=== PATIENT | female | born 1990 | race Caucasian/White ===

== ENCOUNTER → 2019-11-02 | Outpatient (CLI) | payer OTHER ==
[2019-11-02 15:30] LABS: African American GFR (CKD) 136.7 (60.0-200.0); Albumin 4.3 g/dL (3.80-4.90); Albumin/Globulin Ratio 2.15 (1.60-3.17); Anion Gap 8.7 mmol/L (4.00-12.00); BUN/Creat Ratio 12.86 Ratio (12.00-20.00); Carbon Dioxide 27.3 mmol/L (21.6-31.8); Non-African American GFR(CKD) 117.9 (60.0-200.0); Total Protein 6.3 g/dL (6.2-8.2)
== END ==
LOC: LABWHC1 08:47
PROVIDERS: ATTEND Internal Medicine
DX: E03.9 Hypothyroidism, unspecified (principal); E23.0 Hypopituitarism
CPT/HCPCS: 36415; 80053; 82024; 82533; 84439

== ENCOUNTER → 2020-12-11 | Outpatient (CLI) | payer OTHER ==
[2020-12-11 21:37] LABS: African American GFR (CKD) 135.7 (60.0-200.0); Anion Gap 8.1 mmol/L (4.00-12.00); BUN/Creat Ratio 15.71 Ratio (12.00-20.00); Calcium 9.3 mg/dL (8.7-10.3); Carbon Dioxide 25.9 mmol/L (21.6-31.8); Non-African American GFR(CKD) 117.1 (60.0-200.0); Potassium 4.2 mmol/L (3.5-5.5)
[2020-12-11 21:44] LABS: T4, Free (Free Thyroxine) 1.2 ng/dL (0.80-1.80)
== END | disposition home or self-care (01) ==
LOC: LABWHC1 08:15
PROVIDERS: ATTEND Internal Medicine
DX: E23.0 Hypopituitarism (principal); E03.9 Hypothyroidism, unspecified
CPT/HCPCS: 36415; 80048; 82024; 82533; 84439

== ENCOUNTER → 2021-03-12 | Outpatient (CLI) | payer OTHER ==
--- NOTE | 2021-03-12 12:34 | MR ---
EXAMINATION TYPE: MR pituitary wo/w con DATE OF EXAM: 03/12/2021 11:44 AM COMPARISON: NONE HISTORY: Diabetes, insipidus, Loss of smell x 2 years CONTRAST: Patient received 9.5 mL intravenous Gadavist gadolinium contrast. Multiplanar MultiSpin echo imaging of the pituitary fossa was performed. Unenhanced followed by cont rast enhanced images are submitted. The unenhanced portion of the study fails to demonstrate evidence for hyperintense pituitary lesion. The pituitary gland is of normal size and morphology. Following contrast administration there is no evidence for filling defect to suggest microadenoma. Pituitary stalk is midline. Suprasellar cister n is unremarkable without evidence for mass. Optic chiasm has a normal appearance. Cavernous sinus including the carotid vessels appear to be within normal limits. IMPRESSION: 1. No evidence for pituitary micro or macroadenoma.
== END | disposition home or self-care (01) ==
LOC: RADMRIMAIN 10:27
PROVIDERS: ATTEND Otolaryngology Otolaryngic Allergy
DX: E23.2 Diabetes insipidus (principal)
CPT/HCPCS: 70553; A9585

== ENCOUNTER → 2021-03-13 | Outpatient (CLI) | payer OTHER ==
--- NOTE | 2021-03-13 13:47 | MR ---
EXAMINATION TYPE: MR brain wo/w con DATE OF EXAM: 03/13/2021 COMPARISON: MRI pituitary gland yesterday. HISTORY: diabetes insipidus, Loss of smell x 2 years TECHNIQUE: Multiplanar, multisequence images of the brain and brainstem is performed without and with IV contras t, utilizing 9.5 mL intravenous Gadavist . FINDINGS: Diffusion weighted images demonstrate no evidence of a recent infarct or other diffusion ab normality. There is no extra-axial fluid collection or significant white matter signal abnormality. The ventricular system and cisternal spaces are normal in size and appearance. The brain volume is age appropriate. Midline structures demonstrate normal morphology. The craniocervical junction appears within normal limits. Post contrast images demonstrate no abnormal enhancement. The dural venous sinuses appear pa tent. Globes are intact bilaterally. Mild to moderate mucosal thickening involving ethmoid sinuses bilaterally is suspected. Suspect small caliber or nonformed bilateral maxillary and sphenoid sinuses. Poor visualization of bilateral front al sinuses. IMPRESSION: Hypoplastic or nonformed bilateral paranasal sinuses , correlate clinically otherwise unr emarkable study.
== END | disposition home or self-care (01) ==
LOC: RADMRIMAIN 11:43
PROVIDERS: ATTEND Otolaryngology Otolaryngic Allergy
DX: E23.2 Diabetes insipidus (principal)
CPT/HCPCS: 70553; A9585

== ENCOUNTER → 2021-04-16 | Outpatient (CLI) | payer OTHER ==
--- NOTE | 2021-04-16 12:58 | CT ---
EXAMINATION TYPE: CT sinus wo con DATE OF EXAM: 04/16/2021 COMPARISON: MRI brain March 13, 2021 HISTORY: Loss of sense of smell in the last [address] DLP: 515 mGycm. Automated Exposure Control for Dose Reduction was Utilized. TECHNIQUE: CT scan of the sinuses is performed without contrast, axial images are obtained, coronal r eformatted images are also reviewed. FINDINGS: There are small-caliber bilateral maxillary sinuses with some faint calcifications and cat re mucosal thickening. Pino are thickened and sclerotic. Mild to moderate mucosal thickening involvi ng the ethmoid sinuses bilaterally. There are hypoplastic bilateral frontal and sphenoid sinuses. The ostiomeatal complex is patent bilaterally on coronal image 19. Visualized portion of mastoid air cells show diffuse sclerosis mastoid air cells remnant air cells ar e opacified. Prominent soft tissue density in the deep external auditory canals bilaterally could ref lect cerumen, the etiology is not excluded. Soft tissue density surrounds right-sided middle ear ossi cles which have abnormal shape or deformity. The globes are intact bilaterally. Nasal septum remains midline. IMPRESSION: Unusual appearance of the paranasal sinuses as detailed above suggests congenital anomaly or congenital postinflammatory process. Correlate clinically. Unusual appearance to the mastoid jose on bilaterally. Deformity to right middle ear ossicles noted. Consider clinical congenital syndromes. Follow-up advised.
== END | disposition home or self-care (01) ==
LOC: RADCTMAIN 12:24
PROVIDERS: ATTEND Otolaryngology Otolaryngic Allergy
DX: J30.9 Allergic rhinitis, unspecified (principal); H74.8X1 Other specified disorders of right middle ear and mastoid
CPT/HCPCS: 70486

== ENCOUNTER → 2021-12-16 | Outpatient (CLI) | payer OTHER ==
[2021-12-16 15:14] LABS: Anion Gap 12.6 mmol/L (10.00-18.00); BUN/Creat Ratio 13.2 Ratio (12.00-20.00); Calcium 8.9 mg/dL (8.7-10.3); Carbon Dioxide 22.6 mmol/L (20.0-27.5); Non-African American GFR(CKD) 117.3 (60.0-200.0); T4, Free (Free Thyroxine) 0.92 ng/dL (0.800-1.800)
== END | disposition home or self-care (01) ==
LOC: LABWHC1 08:54
PROVIDERS: ATTEND Internal Medicine
DX: E23.0 Hypopituitarism (principal); E03.9 Hypothyroidism, unspecified
CPT/HCPCS: 36415; 80048; 82024; 82533; 84439

== ENCOUNTER → 2022-12-16 | Outpatient (CLI) | payer OTHER ==
[2022-12-16 14:33] LABS: Basophils # (A) 0.05 X 10*3/uL (0.00-0.10); Basophils % (A) 0.6 %; Eosinophils % (A) 2.3 %; HCT 44.1 % (37.2-46.3); HGB 14.5 g/dL (12.0-15.0); Immature Grans, Automated 0.2 %; Lymphocytes # (A) 2.08 X 10*3/uL (0.90-5.00); Lymphocytes % (A) 23.7 %; MCH 29.9 pg (27.0-32.0); MCHC 32.9 g/dL (32.0-37.0); MCV 90.9 fL (80.0-97.0); Mean Platelet Volume 9.8 fL (9.5-12.2); Monocytes # (A) 0.53 X 10*3/uL (0.20-1.00); NRBC Per 100 WBC 0 /100 WBCS (0.0-0.0); Neutrophils # (A) 5.89 X 10*3/uL (1.80-7.70); Neutrophils % (A) 67.2 %; Platelet Count 253 X 10*3/uL (140-440); RBC 4.85 X 10*6/uL (4.10-5.20); RDW 11.9 % (11.5-14.5); WBC 8.77 X 10*3/uL (4.50-10.00)
[2022-12-16 15:12] LABS: ALT 35 U/L (8-44); AST 26 U/L (13-35); Albumin 4.1 g/dL (3.8-4.9); Albumin/Globulin Ratio 1.69 (1.60-3.17); Alkaline Phosphatase 95 U/L (41-126); BUN/Creat Ratio 13.64 Ratio (12.00-20.00); Blood Urea Nitrogen 8.5 mg/dL (9.0-27.0); Carbon Dioxide 23.9 mmol/L (20.0-27.5); Chloride 106 mmol/L (96-109); Chol/HDL Ratio 4.88 Ratio; Globulin 2.5 g/dL (1.6-3.3); Glucose 99 mg/dL (70-110); LDL Cholesterol,Calculated 120.7 mg/dL (0.0-131.0); Potassium 4.1 mmol/L (3.5-5.5); Sodium 142 mmol/L (135-145); Total Protein 6.6 g/dL (6.2-8.2)
== END | disposition home or self-care (01) ==
LOC: LABWHC1 10:46
PROVIDERS: ATTEND Family Medicine
DX: Z01.419 Encounter for gynecological examination (general) (routine) without abnormal findings (principal); E78.5 Hyperlipidemia, unspecified; E03.9 Hypothyroidism, unspecified; E23.0 Hypopituitarism; E55.9 Vitamin D deficiency, unspecified; E53.8 Deficiency of other specified B group vitamins; R73.9 Hyperglycemia, unspecified
CPT/HCPCS: 36415; 80053; 80061; 82024; 82306; 82533; 82607; 83036; 84439; 84443; 85025

== ENCOUNTER → 2023-03-17 | Outpatient (CLI) | payer OTHER ==
[2023-03-17 16:24] LABS: T4, Free (Free Thyroxine) 1.44 ng/dL (0.800-1.800)
== END | disposition home or self-care (01) ==
LOC: LABWHC1 11:23
PROVIDERS: ATTEND Family Medicine
DX: J45.909 Unspecified asthma, uncomplicated (principal); E03.9 Hypothyroidism, unspecified; R43.0 Anosmia
CPT/HCPCS: 36415; 82164; 82785; 84439; 84443; 84480; 86038

== ENCOUNTER → 2023-06-22 | Outpatient (CLI) | payer OTHER ==
--- NOTE | 2023-06-22 18:30 | US ---
EXAMINATION TYPE: US pelvis complete transvag DATE OF EXAM: 06/22/2023 COMPARISON: NONE CLINICAL INDICATION: Female, 32 years old with history of R10.2 PELVIC AND PERINEAL PAIN; pain TECHNIQUE: Transvaginal (TV) and Transabdominal (TA) . Transabdominal sonographic images of the pel vis were acquired. Transvaginal sonographic images were medically necessary to better assess the fol lowing anatomy: Uterus and ovaries. EXAM MEASUREMENTS: Uterus: 7.3 x 3.8 x 5.1 cm Endometrial Stripe: .3 cm 1. Uterus: Anteverted and otherwise wnl 2. Endometrium: wnl 3. Right Ovary: Obscured by overlying bowel gas 4. Left Ovary: Obscured by overlying bowel gas 5. Bilateral Adnexa: wnl 6. Posterior cul-de-sac: wnl IMPRESSION: Thin endometrial stripe at 3 mm. No evident adnexal abnormality or pelvic free fluid. Unable to visua lize either ovary.
== END | disposition home or self-care (01) ==
LOC: RADUSWWP 14:49
PROVIDERS: ATTEND Obstetrics & Gynecology
DX: R10.2 Pelvic and perineal pain (principal)
CPT/HCPCS: 76830; 76856

== ENCOUNTER 2024-07-30 08:51 | Emergency (ER) | payer OTHER ==
[2024-07-30 08:58] VITALS: TEMP 98.5
--- NOTE | 2024-07-30 10:08 | CT ---
EXAMINATION TYPE: CT brain wo con DATE OF EXAM: 07/30/2024 COMPARISON: None HISTORY: Sudden sensorineural hearing loss, dizziness CT DLP: 1125.2 mGycm. Automated Exposure Control for Dose Reduction was Utilized. TECHNIQUE: CT scan of the head is performed without contrast. FINDINGS: The ventricles, basal cisterns and sulci over the convexities are within normal limits and there is n o mass effect or shift of midline structures. There is mild focal calcification in the left basal ganglia. There is no acute intra or extra-axial h emorrhage. Posterior fossa including the brainstem, fourth ventricle and cerebellopontine angles appear grossly normal. The intraorbital contents appear normal. There are marked chronic inflammatory changes in the maxillary sinuses. Frontal sinuses and mastoid a ir cells are hypoplastic. There is fluid in the right middle ear cavity and right mastoid air cells. IMPRESSION: 1. No acute bleed or mass effect. 2. Hypoplastic mastoid air cells. 3. fluid in the right mastoid air cells and middle ear cavity.
--- NOTE | 2024-07-30 10:10 | ED ---
ENT HPI - General Chief complaint: ENT Stated complaint: hearing loss Time Seen by Provider: 07/30/24 09:11 Source: patient, RN notes reviewed Mode of arrival: ambulatory Limitations: no limitations - History of Present Illness Initial comments: 33-year-old female presents emergency department with chief complaint of hearing loss. Patient has chronic hearing issues in which she had multiple surgeries she had scarring developed over both eardrums multiple tubes and surgeries patient occasionally has some cerumen issues she does wear hearing aids indy delgado initially thought that she just could not hear because her hearing aid stopped working at a concert last night. Patient states discharge throughout the night she still having difficulty hearing. She apparently hears her left ear is right ear is very minimal. Patient states she cannot hear herself talking. Patient denies any fevers or chills no dizziness no chest pain or shortness of breath no recent illnesses. - Related Data Allergies Allergy/AdvReac Type Severity Reaction Status Date / Time No Known Allergies Allergy Verified 07/30/24 08:58 Review of Systems ROS Statement: Those systems with pertinent positive or pertinent negative responses have been documented in the HPI. ROS Other: All systems not noted in ROS Statement are negative. Past Medical History Past Medical History: Diabetes Mellitus Additional Past Medical History / Comment(s): Hearing impaired History of Any Multi-Drug Resistant Organisms: None Reported Past Surgical History: No Surgical Hx Reported Past Psychological History: No Psychological Hx Reported Smoking Status: Never smoker Past Alcohol Use History: None Reported Past Drug Use History: None Reported General Exam Limitations: no limitations General appearance: alert, in no apparent distress Head exam: Present: atraumatic, normocephalic, normal inspection Eye exam: Present: normal appearance, PERRL, EOMI. Absent: scleral icterus, conjunctival injection, periorbital swelling ENT exam: Present: normal oropharynx, mucous membranes moist. Absent: TM's normal bilaterally, normal external ear exam Neck exam: Present: normal inspection, full ROM. Absent: tenderness, meningismus, lymphadenopathy Respiratory exam: Present: normal lung sounds bilaterally. Absent: respiratory distress, wheezes, rales, rhonchi, stridor Cardiovascular Exam: Present: regular rate, normal rhythm, normal heart sounds. Absent: systolic murmur, diastolic murmur, rubs, gallop, clicks Neurological exam: Present: alert, oriented X3, CN II-XII intact, reflexes normal. Absent: motor sensory deficit Skin exam: Present: warm, dry, intact, normal color. Absent: rash Course Vital Signs 07/30/24 07/30/24 08:55 09:22 Temperature 98.5 F Pulse Rate 72 84 Respiratory 20 18 Rate Blood Pressure 178/107 171/89 O2 Sat by Pulse 99 96 Oximetry Medical Decision Making - Medical Decision Making Was pt. sent in by a medical professional or institution ([facility], [facility], urgent care, hospital, or [facility]...) When possible be specific @ -No Did you speak to anyone other than the patient for history (EMS, parent, family, police, friend...)? What history was obtained from this source @ -No Did you review nursing and triage notes (agree or disagree)? Why? @ -I reviewed and agree with nursing and triage notes Were old charts reviewed (outside hosp., previous admission, EMS record, old EKG, old radiological studies, urgent care reports/EKG's, [facility] records)? Report findings @ -No old charts were reviewed Differential Diagnosis (chest pain, altered mental status, abdominal pain women, abdominal pain men, vaginal bleeding, weakness, fever, dyspnea, syncope, headache, dizziness, GI bleed, back pain, seizure, CVA, palpatations, mental health, musculoskeletal)? @ -Sensorineural hearing loss, cerumen impaction, otitis media, hearing aid failure, cochlear issue, vestibular issue EKG interpreted by me (3pts min.). @ -None] X-rays interpreted by me (1pt min.). @ -None done CT interpreted by me (1pt min.). @ -[CT brain shows no acute process and left side there is chronic changes bilaterally and some mastoid changes chronically on the right U/S interpreted by me (1pt. min.). @ -None done What testing was considered but not performed or refused? (CT, X-rays, U/S, labs)? Why? @ -None What meds were considered but not given or refused? Why? @ -None Did you discuss the management of the patient with other professionals (professionals i.e. [facility], [facility], lab, RT, psych nurse, social media developer, rd scientist, teacher, chief financial officer, counter caser)? Give summary @ -No Was smoking cessation discussed for >3mins.? @ -No Was critical care preformed (if so, how long)? @ -No Were there social determinants of health that impacted care today? How? (Homelessness, low income, unemployed, alcoholism, drug addiction, transportation, low edu. Level, literacy, decrease access to med. care, shelter, rehab)? @ -No Was there de-escalation of care discussed even if they declined (Discuss DNR or withdrawal of care, Hospice)? DNR status @ -No What co-morbidities impacted this encounter? (DM, HTN, Smoking, COPD, CAD, Cancer, CVA, ARF, Chemo, Hep., AIDS, mental health diagnosis, sleep apnea, morbid obesity)? @ -None Was patient admitted / discharged? Hospital course, mention meds given and route, prescriptions, significant lab abnormalities, going to OR and other pertinent info. @ -Discharge patient does have cerumen impaction of left patient refuses and mother refuses irrigation demanding mechanical removal advised that he see ENT for this. Patient has no other acute causes for hearing loss advised to call her investigation division captain and ENT tomorrow morning Undiagnosed new problem with uncertain prognosis? @ -No Drug Therapy requiring intensive monitoring for toxicity (Heparin, Nitro, Insulin, Cardizem)? @ -No Were any procedures done? @ -No Diagnosis/symptom? @ -Sensory neuronal hearing loss Acute, or Chronic, or Acute on Chronic? @ -Acute Uncomplicated (without systemic symptoms) or Complicated (systemic symptoms)? @ -Uncomplicated Side effects of treatment? @ -No Exacerbation, Progression, or Severe Exacerbation? @ -No Poses a threat to life or bodily function? How? (Chest pain, [place], [place], pneumonia, PE, COPD, DKA, ARF, appy, cholecystitis, CVA, Diverticulitis, Homicidal, Suicidal, threat to staff... and all critical care pts) @ -No Disposition Clinical Impression: Sensorineural hearing loss Disposition: HOME SELF-CARE Condition: Stable Instructions (If sedation given, give patient instructions): Hearing Loss (ED) Additional Instructions: Follow-up with ENT, investigation division captain. Please return to the Emergency Department if symptoms worsen or any other concerns. Is patient prescribed a controlled substance at d/c from ED?: No Referrals: Mary Abbasi MD [Primary Care Provider] - 1-2 days Navdeep Benitez MD [STAFF PHYSICIAN] - 1-2 days Robert Rush MD [STAFF PHYSICIAN] - 1-2 days Time of Disposition: 11:04
[2024-07-30] MEDS: CARBAMIDE PEROXIDE 6.5% DROPS 15 ML BTL LEFT EAR STA (10:13)
[2024-07-30 11:34] VITALS: BP 161/64; PULSE 74; RESP 16
== END 2024-07-30 11:34 | disposition home or self-care (01) ==
LOC: EC 08:51
DX: H90.5 Unspecified sensorineural hearing loss (principal)
CPT/HCPCS: 70450; 99283

== ENCOUNTER → 2024-07-30 | Outpatient (CLI) | payer OTHER ==
[2024-07-30 13:13] LABS: ALT 13 U/L (8-49); AST 17 U/L (13-35); Albumin 4.1 g/dL (3.8-4.9); Albumin/Globulin Ratio 1.52 Ratio (1.60-3.17); Alkaline Phosphatase 99 U/L (41-126); BUN/Creat Ratio 12.57 Ratio (12.00-20.00); Blood Urea Nitrogen 8.8 mg/dL (9.0-27.0); Carbon Dioxide 23.1 mmol/L (21.6-31.8); Chloride 108 mmol/L (96-109); Globulin 2.7 g/dL (1.6-3.3); Glucose 115 mg/dL (70-110); Potassium 3.8 mmol/L (3.5-5.5); Sodium 142 mmol/L (135-145); Total Bilirubin 0.8 mg/dL (0.3-1.2); Total Protein 6.8 g/dL (6.2-8.2)
== END | disposition home or self-care (01) ==
LOC: LABMAIN 09:36
PROVIDERS: ATTEND Internal Medicine
DX: E23.0 Hypopituitarism (principal); E03.9 Hypothyroidism, unspecified; E55.9 Vitamin D deficiency, unspecified
CPT/HCPCS: 80053; 82306; 84439; 84443